=== PATIENT | female | born 1945 | race Caucasian/White ===

== ENCOUNTER 2023-06-06 10:43 | Day surgery (SDC) | payer MEDICARE ==
[2023-06-04 13:15] VITALS: BMI 32.5
[2023-06-06] MEDS: LACTATED RINGERS 1,000 ML IV SCH (11:07)
[2023-06-06] MEDS: LIDOCAINE 1% (10MG/ML) FOR IV START INTRADERMA PRN (11:20)
[2023-06-06 11:36] VITALS: TEMP 97.2
[2023-06-06] MEDS ORDERED: PROPOFOL 10 MG/ML 20 ML VIAL IV ONE (11:56)
--- NOTE | 2023-06-06 12:10 | P.PCN ---
Date of Procedure: 06/06/23 Procedure(s) Performed: BRIEF HISTORY: Patient is a 78-year-old pleasant [place] female scheduled for an elective colonoscopy as a part of screening for colon cancer/positive cologurd PROCEDURE PERFORMED: Colonoscopy with snare polypectomy. PREOPERATIVE DIAGNOSIS: Screening for colon cancer/positive cologuard. IV sedation per Anesthesia. PROCEDURE: After informed consent was obtained, the patient, was brought into the endoscopy unit. IV sedation was administered by Anesthesia under continuous monitoring. Digital rectal examination was normal. Initially the Olympus CF-160 flexible video colonoscope was then inserted in the rectum, gradually advanced into the cecum without any difficulty. Careful examination was performed as the scope was gradually being withdrawn. Ileocecal valve and the appendiceal orifice were visualized and appeared normal. Prep was excellent. Mucosa of the cecum, ascending colon, appeared normal. In the transverse colon there was a 1 cm broad-based polyp removed by snare polypectomy. Rest of the transverse colon, descending colon, sigmoid colon, and rectum appeared normal. Retroflexion was performed in the rectum and no lesions were seen. Scattered sigmoid diverticulosis seen. The patient tolerated the procedure well. IMPRESSION: 1 cm broad-based transverse colon polyp status post snare polypectomy Scattered sigmoid diverticulosis RECOMMENDATIONS: Findings of this examination were discussed with the patient as well as her family. She was advised to follow with the biopsy result and the biopsy results adenoma, recommend repeat colonoscopy in 3 years.
[2023-06-06 12:37] VITALS: BP 133/70; PULSE 74; RESP 20
== END 2023-06-06 12:56 | disposition home or self-care (01) ==
LOC: ORWHC2ENDO 10:43
PROVIDERS: ATTEND Internal Medicine Gastroenterology
DX: D12.3 Benign neoplasm of transverse colon (principal); K57.30 Diverticulosis of large intestine without perforation or abscess without bleeding; I10 Essential (primary) hypertension; J45.909 Unspecified asthma, uncomplicated; F17.200 Nicotine dependence, unspecified, uncomplicated; E03.9 Hypothyroidism, unspecified; Z79.890 Hormone replacement therapy; Z79.51 Long term (current) use of inhaled steroids; Z79.899 Other long term (current) drug therapy
CPT/HCPCS: 88305; 45385; J2704

== ENCOUNTER → 2024-03-27 | Outpatient (CLI) | payer MEDICARE ==
--- NOTE | 2024-03-27 10:34 | MM ---
Reason for Exam: Clinical finding. Last mammogram was performed 16 year(s) and 3 month(s) ago. Indicated Problems: Lump or thickening of the right side for 2 Month(s). Patient History: Menarche at age 12. Patient has no children. Hysterectomy at age 52. Postmenopausal. 02/19/2008, Cancelled Left Mammotome on the left side. Maternal cousin had breast cancer. Risk Values: Elyse 5 year model risk: 1.7%. NCI Lifetime model risk: 3.5%. Prior Study Comparison: 05/02/2002 Bilateral Diagnostic Mammogram, [facility]. 01/09/2008 Bilateral Screening Mammogram, [facility]. 01/23/2008 Left Diagnostic Mammogram, [facility]. Tissue Density: There are scattered areas of fibroglandular density. Findings: Analyzed By CAD. The pattern is symmetrical. The large spiculated density within the upper outer right breast highly suggestive for malignancy. Left breast:No suspicious groups of microcalcifications, spiculated or lobular masses, architectural distortion or other secondary signs of malignancy are mammographically apparent. There are some scattered benign-appearing calcifications left breast. Overall Assessment: Incomplete: need additional imaging evaluation, BI-RAD 0 Management: Diagnostic Breast Ultrasound of the right breast. A negative mammogram report should not preclude additional follow up of suspicious palpable abnormalities. Patient should continue monthly self breast exam. A clinical breast exam by your physician is recommended on an annual basis and results should be correlated with mammographic findings. Note on Elyse scores and lifetime risk: 1. A Elyse score greater than 3% is considered moderate risk. If this is the case, consider specialist referral to assess eligibility for a risk reducing agent. 2. If overall lifetime risk for the development of breast cancer is 20% or higher, the patient may qualify for future screening with alternating mammogram and breast MRI. [facility], , 03/27/2024 10:27 AM. Electronically signed and approved by: Lucien Glaser D.O. Radiologis
--- NOTE | 2024-03-27 11:19 | USB ---
Patient History: Menarche at age 12. Patient has no children. Hysterectomy at age 52. Postmenopausal. 02/19/2008, Cancelled Left Mammotome on the left side. Maternal cousin had breast cancer. Risk Values: Elyse 5 year model risk: 1.7%. NCI Lifetime model risk: 3.5%. Technique: Method: Targeted. Prior Study Comparison: 05/02/2002 Bilateral Diagnostic Mammogram, [facility]. 01/09/2008 Bilateral Screening Mammogram, [facility]. 01/23/2008 Left Diagnostic Mammogram, [facility]. Findings: The area of palpable concern of the right breast, the axilla of the right breast and the retroareolar of the right breast were scanned. There is an irregular hypoechoic lesion at the palpable level with posterior shadowing. This measures approximately 3.0 x 2.4 x 3.0 cm 10:00 position 15 cm nipple.. Several small lymph nodes in the right axillary region. Overall Assessment: Highly suggestive of malignancy, BI-RAD 5 Management: Ultrasound Core Biopsy of the right breast. A clinical breast exam by your physician is recommended on an annual basis and results should be correlated with mammographic findings. This exam should not preclude additional follow-up of suspicious palpable abnormalities. Results were given to the patient verbally at the time of exam. [facility], , 03/27/2024 11:04 AM. Electronically signed and approved by: Lucien Glaser D.O. Radiologis
== END | disposition home or self-care (01) ==
LOC: RADMAMWWP 09:15
PROVIDERS: ATTEND Family Medicine
DX: E03.9 Hypothyroidism, unspecified (principal); Z78.0 Asymptomatic menopausal state; Z80.3 Family history of malignant neoplasm of breast
CPT/HCPCS: 77066; 76642; G0279; 77062

== ENCOUNTER → 2024-04-10 | Day surgery (SDC) | payer MEDICARE ==
--- NOTE | 2024-04-17 10:06 | MM ---
Reason for Exam: Post Procedure Mammogram. Last screening mammogram was performed less than 1 month ago. Patient History: Menarche at age 12. Patient has no children. Hysterectomy at age 52. Postmenopausal. 02/19/2008, Cancelled Left Mammotome on the left side. Maternal cousin had breast cancer. Risk Values: Elyse 5 year model risk: 1.7%. NCI Lifetime model risk: 3.5%. Prior Study Comparison: 01/09/2008 Bilateral Screening Mammogram, [facility]. 01/23/2008 Left Diagnostic Mammogram, [facility]. 03/27/2024 Right US breast limited RT, [facility]. 03/27/2024 Bilateral MG 3D diag mammo w/cad [facility]MER, [facility]. Tissue Density: Right: There are scattered areas of fibroglandular density. Pathology Description: Location: 10 o'clock. Marker Left Behind. Needle Type: Celero Cores: 2 Gauge: 12 The procedure of ultrasound guided core biopsy was explained to the patient. Benefits, alternatives, and risks were discussed. An informed consent was then obtained. The patient was placed in supine positioning for imaging and for the procedure. The overlying skin was prepped and draped in usual sterile fashion. Lidocaine buffered with bicarbonate was used as anesthetic into the skin followed by lidocaine/epinephrine into the subcutaneous tissue up to area of concern in the 10:00 right breast. The BI-RADS 5 mass was targeted. Under ultrasound guidance, a 12-gauge vacuum assisted Celero biopsy device was used to obtain 2 core samples. Following this, a HydroMark butterfly clip was left in lesion. The patient tolerated the procedure well without any immediate complication. The patient was kept in the radiology department for short stay after the procedure and then discharged home in stable condition. Postprocedure mammogram: The patient was transferred to mammography for physician ordered post procedure mammogram for clip placement verification. Post procedure mammogram demonstrates appropriate placement of clip within the suspicious mass. IMPRESSION: Successful, uncomplicated ultrasound guided core biopsy of BI-RADS 5 mass right breast 10:00 position. Full pathology results to follow. [facility], , 04/10/2024 12:20 PMThe procedure of ultrasound guided core biopsy was explained to the patient. Benefits, alternatives, and risks were discussed. An informed consent was then obtained. The patient was placed in supine positioning for imaging and for the procedure. The overlying skin was prepped and draped in usual sterile fashion. Lidocaine buffered with bicarbonate was used as anesthetic into the skin followed by lidocaine/epinephrine into the subcutaneous tissue up to area of concern in the 10:00 right breast. The BI-RADS 5 mass was targeted. Under ultrasound guidance, a 12-gauge vacuum assisted Celero biopsy device was used to obtain 2 core samples. Following this, a HydroMark butterfly clip was left in lesion. The patient tolerated the procedure well without any immediate complication. The patient was kept in the radiology department for short stay after the procedure and then discharged home in stable condition. Postprocedure mammogram: The patient was transferred to mammography for physician ordered post procedure mammogram for clip placement verification. Post procedure mammogram demonstrates appropriate placement of clip within the suspicious mass. IMPRESSION: Successful, uncomplicated ultrasound guided core biopsy of BI-RADS 5 mass right breast 10:00 position. Full pathology results to follow. [facility], , 04/10/2024 12:21 PM. Pathology Results: Result: Malignant, Invasive ductal carcinoma. Pathology and radiology were reviewed. Findings are concordant. RIGHT BREAST, 10:00, NEEDLE CORE BIOPSY: Invasive moderately differentiated ductal carcinoma (Grade 2). See Surgical Pathology Cancer Case Summary and Comment. Overall Assessment: Malignant Assessment: MG diagnostic mammo RT wo CAD - Right: Known biopsy proven malignancy, BI-RAD 6. Management: Surgical Consultation of the right breast. Electronically signed and approved by: Nina Katz M.D. Radiologist
== END ==
LOC: RADUSWWP 10:31
PROVIDERS: ATTEND Family Medicine
DX: C50.411 Malignant neoplasm of upper-outer quadrant of right female breast (principal); Z78.0 Asymptomatic menopausal state; Z80.3 Family history of malignant neoplasm of breast
CPT/HCPCS: 88305; 88342; 88341; 77065; 19083; A4648

== ENCOUNTER → 2024-05-01 | Outpatient (CLI) | payer MEDICARE ==
[2024-05-01 08:49] VITALS: BP 177/97; PULSE 79; RESP 16; TEMP 97.2
--- NOTE | 2024-05-01 09:22 | P.GSCN ---
History of Present Illness Consult date: 05/01/24 Reason for Consult: Right breast invasive ductal carcinoma Requesting physician: Arnav Lewis History of present illness: Jackie is a 79-year-old female seen in consultation for Dr. Lewis regarding a biopsy-proven right breast invasive ductal carcinoma. She underwent a bilateral diagnostic mammogram for a palpable abnormality in the right breast on . This revealed a lesion in the upper outer quadrant region of the right breast. She subsequently underwent a diagnostic ultrasound of the right breast 1224. This revealed a 3 x 2.4 x 3 cm lesion at the 10 o'clock position of the right breast. Had a core biopsy of the right breast was performed on 04-10-2024. This revealed an invasive ductal carcinoma G2 ER positive ND positive HER2 equivocal. Radiographs were personally reviewed and discussed with Dr. Reece. She had not had a ammogram for approximately 16 years. She noted a mass in her right breast several months ago. It is not painful. It has not changed in size. She is not complaining of any nipple discharge or skin changes. She has never had any surgery on her breast. Caffiene: occasional nicotine: none chocolate: occasional BCP: none hormones: none Family history: paternal cousin: breast cancer neice: colon cancer sister: esophageal cancer Hormonal History: menarche: 12 G0 menoapuse: hysterectomy in her 40's no cancer, did not take ovaries Surgical History: Hysterectomy Cataracts cyst left hand Medical History: diabetes HTN hypothyroid asthma Social History: nicotine: none alcohol: occasional drugs: none Review of Systems - Constitutional Denies fever, Denies weight loss - EENT Eyes: bilateral as per HPI, denies blurred vision Ears: bilateral: decreased hearing (hearing aids), deny: tinnitus Ears, nose, mouth and throat: Denies dysphagia - Breasts bilateral: as per HPI - Cardiovascular Denies chest pain, Denies shortness of breath - Respiratory Denies cough, Denies 7 - Gastrointestinal Reports as per HPI - Genitourinary Genitourinary: Denies dysuria, Denies hematuria Menstruation: Reports post hysterectomy - Musculoskeletal Musculoskeleta Comment(s): sciatica - Integumentary Denies rash, Denies unusual bruising - Neurological Denies headaches, Denies syncope - Psychiatric Reports as per HPI - Endocrine Reports as per HPI - Hematologic/Lymphatic Denies easy bleeding, Denies easy bruising Hematologic/Lymphatic Comment(s): aspirin daily - Allergic/Immunologic Reports seasonal allergies Past Medical History Past Medical History: Asthma, Hypertension, Thyroid Disorder History of Any Multi-Drug Resistant Organisms: None Reported Past Surgical History: Hysterectomy Additional Past Surgical History / Comment(s): colonoscopy, Past Anesthesia/Blood Transfusion Reactions: No Reported Reaction Additional Past Anesthesia/Blood Transfusion Reaction / Comm: no blood transfusion Past Psychological History: No Psychological Hx Reported Smoking Status: Never smoker Past Alcohol Use History: Rare Past Drug Use History: None Reported Medications and Allergies Home Medications Medication Instructions Recorded Confirmed Type Acetaminophen-Codeine 300-30mg 1 tab PO BID 06/04/23 05/01/24 History [Tylenol w/codeine #3] Ascorbic Acid [Vitamin C] 500 mg PO DAILY 06/04/23 05/01/24 History Aspirin [[place] Aspirin EC] 81 mg PO DAILY 06/04/23 05/01/24 History Cinnamon Bark [Cinnamon] 500 mg PO BID 06/04/23 05/01/24 History Magnesium Carb,Citrate,Oxide 300 mg PO DAILY 06/04/23 05/01/24 History [Magnesium Complex] Mometasone/Formoterol [Dulera 100 2 puff INHALATION BID 06/04/23 05/01/24 History Mcg-5 Mcg Inhaler] Potassium Gluconate [Potassium 99 mg PO DAILY 06/04/23 05/01/24 History (2.5 MEQ = 600 MG)] Thyroid,Pork [[place] Thyroid] 30 mg PO DAILY 06/04/23 05/01/24 History Triamterene/Hydrochlorothiazid 1 each PO DAILY 06/04/23 05/01/24 History [Triamterene-Hctz 37.5-25 mg Cp] Vitamin B Complex 1 each PO DAILY 06/04/23 05/01/24 History busPIRone HCL [Buspirone HCl] 10 mg PO DAILY 06/04/23 05/01/24 History cod liver oiL [Cod Liver Oil] 1 tab PO DAILY 06/04/23 05/01/24 History ramipriL [Altace] 10 mg PO DAILY 06/04/23 05/01/24 History Allergies Allergy/AdvReac Type Severity Reaction Status Date / Time No Known Allergies Allergy Verified 05/01/24 08:44 Surgical - Exam Vital Signs Temp Pulse Resp BP Pulse Ox 98.2 F 64 17 173/78 100 05/01/24 08:44 05/01/24 08:44 05/01/24 08:44 05/01/24 08:44 05/01/24 08:44 - General no distress - Eyes normal ocular movement - ENT bilateral hearing aids - Respiratory normal respiratory effort, clear to auscultation - Cardiovascular Rhythm: regular Heart Sounds: normal: S1, S2 - Abdomen Abdomen: soft, non tender, no guarding, no rigid, no rebound - Integumentary no rash, no abnormal pigmentation - Neurologic no disoriented, no combative - Musculoskeletal normal gait - Psychiatric oriented to time, oriented to person, oriented to place, speech is normal, memory intact Breast Exam: 40DD Inspection: Bilateral grade 3 ptosis Palpation: Right breast: Multi positional exam mass upper outer quadrant approximately 3 x 3 cm in size freely mobile no other dominant masses or nodules of concern Right axilla: No adenopathy of concern Left breast: Multi positional exam no dominant masses or nodules of concern Left axilla: No adenopathy of concern Results Radiographs personally reviewed and discussed with Dr. Reece from radiology/lesion right breast 10 o'clock position biopsy-proven invasive ductal carcinoma Assessment and Plan Assessment: Impression: Right breast invasive ductal carcinoma HER2 status pending Decreased hearing bilateral ears Asthma Hypertension Hypothyroid Plan: Presentation of case at tumor board CC: Dr. Lewis/Mary Ellen Rebolledo
== END ==
LOC: WWCWWP 08:06
PROVIDERS: ATTEND Surgery
DX: C50.911 Malignant neoplasm of unspecified site of right female breast (principal); I10 Essential (primary) hypertension; J45.909 Unspecified asthma, uncomplicated; E03.9 Hypothyroidism, unspecified; H91.03 Ototoxic hearing loss, bilateral; Z80.3 Family history of malignant neoplasm of breast

== ENCOUNTER → 2024-06-12 | Outpatient (CLI) | payer MEDICARE ==
[2024-06-12 12:09] VITALS: BP 137/77; PULSE 87; RESP 17; TEMP 97.9
--- NOTE | 2024-06-12 13:04 | P.BCPN ---
Subjective Progress Note Date: 06/12/24 Principal diagnosis: right breast invasive ductal cancer History of Present Illness Consult date: 06-12-24 Reason for Consult: Right breast invasive ductal carcinoma Requesting physician: Arnav Lewis History of present illness: Jackie is a 79-year-old female seen in consultation for Dr. Lewis regarding a biopsy-proven right breast invasive ductal carcinoma. She underwent a bilateral diagnostic mammogram for a palpable abnormality in the right breast on 24. This revealed a lesion in the upper outer quadrant region of the right breast. She subsequently underwent a diagnostic ultrasound of the right breast 1224. This revealed a 3 x 2.4 x 3 cm at the 10 o'clock position of the right breast. Had a core biopsy of the right breast was performed on 04-10-2024. This revealed an invasive ductal carcinoma G2 ER positive MT positive HER2 (-). Radiographs were personally reviewed and discussed with Dr. Reece. She had not had a mammogram for approximately 16 years. She noted a mass in her right breast several months ago. It is not painful. It has not changed in size. She is not complaining of any nipple discharge or skin changes. She has never had any surgery on her breast. Ultrasound of the axilla revealed a lesion in the right axilla for which core biopsy was performed. This was done on. This was positive. oncotype 6 Patient will have genetic testing done which will not change her treatment decision. Her case was presented at tumor board on 05-13-2024 note medical oncology 05-13-24 Dr. Malik reviewed Caffiene: occasional nicotine: none chocolate: occasional BCP: none hormones: none Family history: paternal cousin: breast cancer neice: colon cancer sister: esophageal cancer Hormonal History: menarche: 12 G0 menoapuse: hysterectomy in her 40's no cancer, did not take ovaries Surgical History: Hysterectomy Cataracts cyst left hand Medical History: diabetes HTN hypothyroid asthma Social History: nicotine: none alcohol: occasional drugs: none Review of Systems - Constitutional Denies fever, Denies weight loss - EENT Eyes: bilateral as per HPI, denies blurred vision Ears: bilateral: decreased hearing (hearing aids), deny: tinnitus Ears, nose, mouth and throat: Denies dysphagia - Breasts bilateral: as per HPI - Cardiovascular Denies chest pain, Denies shortness of breath - Respiratory Denies cough - Gastrointestinal Reports as per HPI - Genitourinary Genitourinary: Denies dysuria, Denies hematuria Menstruation: Reports post hysterectomy - Musculoskeletal Musculoskeleta Comment(s): sciatica - Integumentary Denies rash, Denies unusual bruising - Neurological Denies headaches, Denies syncope - Psychiatric Reports as per HPI - Endocrine Reports as per HPI - Hematologic/Lymphatic Denies easy bleeding, Denies easy bruising Hematologic/Lymphatic Comment(s): aspirin daily - Allergic/Immunologic Reports seasonal allergies Past Medical History Past Medical History: Asthma, Hypertension, Thyroid Disorder History of Any Multi-Drug Resistant Organisms: None Reported Past Surgical History: Hysterectomy Additional Past Surgical History / Comment(s): colonoscopy, Past Anesthesia/Blood Transfusion Reactions: No Reported Reaction Additional Past Anesthesia/Blood Transfusion Reaction / Comm: no blood transfusion Past Psychological History: No Psychological Hx Reported Smoking Status: Never smoker Past Alcohol Use History: Rare Past Drug Use History: None Reported Medications and Allergies Home Medications Medication Instructions Recorded Confirmed Type Acetaminophen-Codeine 300-30mg 1 tab PO BID 06/04/23 05/01/24 History [Tylenol w/codeine #3] Ascorbic Acid [Vitamin C] 500 mg PO DAILY 06/04/23 05/01/24 History Aspirin [[place] Aspirin EC] 81 mg PO DAILY 06/04/23 05/01/24 History Cinnamon Bark [Cinnamon] 500 mg PO BID 06/04/23 05/01/24 History Magnesium Carb,Citrate,Oxide 300 mg PO DAILY 06/04/23 05/01/24 History [Magnesium Complex] Mometasone/Formoterol [Dulera 100 2 puff INHALATION BID 06/04/23 05/01/24 History Mcg-5 Mcg Inhaler] Potassium Gluconate [Potassium 99 mg PO DAILY 06/04/23 05/01/24 History (2.5 MEQ = 600 MG)] Thyroid,Pork [[place] Thyroid] 30 mg PO DAILY 06/04/23 05/01/24 History Triamterene/Hydrochlorothiazid 1 each PO DAILY 06/04/23 05/01/24 History [Triamterene-Hctz 37.5-25 mg Cp] Vitamin B Complex 1 each PO DAILY 06/04/23 05/01/24 History busPIRone HCL [Buspirone HCl] 10 mg PO DAILY 06/04/23 05/01/24 History cod liver oiL [Cod Liver Oil] 1 tab PO DAILY 06/04/23 05/01/24 History ramipriL [Altace] 10 mg PO DAILY 06/04/23 05/01/24 History Allergies Allergy/AdvReac Type Severity Reaction Status Date / Time No Known Allergies Allergy Verified 05/01/24 08:44 Objective - Vital Signs Vital Signs: Vital Signs Temp 97.9 F 06/12/24 12:07 Pulse 87 06/12/24 12:07 Resp 17 06/12/24 12:07 BP 137/77 06/12/24 12:07 Pulse Ox 94 L 06/12/24 12:07 FiO2 Intake & Output 06/11/24 06/12/24 06/12/24 18:59 06:59 18:59 Weight 73.936 kg - Constitutional General appearance: Present: cooperative - EENT Eyes: Present: EOMI ENT: Present: hearing grossly normal - Neck Neck: Present: normal ROM - Breast Breast-Narrative: Breast Exam: 40DD Inspection: Bilateral grade 3 ptosis Palpation: Right breast: Multi positional exam mass upper outer quadrant approximately 3 x 3 cm in size freely mobile no other dominant masses or nodules of concern Right axilla: No adenopathy of concern Left breast: Multi positional exam no dominant masses or nodules of concern Left axilla: No adenopathy of concern Ptosis: Grade 3: Right Breast Ptosis, Left Breast Ptosis Breast: right: mass (3 by 3 cm UOQ), left: normal Right Breast Palpation (Multi-positional): Other Left Breast Palpation (Multi-positional): No dominant masses, Fibrocystic Changes Right Axilla Palpation: No adenopathy of concern Left Axilla Palpation: No adenopathy of concern - Respiratory Respiratory: bilateral: CTA - Cardiovascular Heart sounds: normal: S1, S2 - Gastrointestinal General gastrointestinal: Present: soft - Integumentary Integumentary: Present: normal turgor - Musculoskeletal Musculoskeletal: Present: gait normal - Psychiatric Psychiatric: Present: A&O x's 3, appropriate affect, intact judgment & insight - Additional findings Additional findings: Breast Exam: 40DD Inspection: Bilateral grade 3 ptosis Palpation: Right breast: Multi positional exam mass upper outer quadrant approximately 3 x 3 cm in size freely mobile no other dominant masses or nodules of concern Right axilla: No adenopathy of concern Left breast: Multi positional exam no dominant masses or nodules of concern Left axilla: No adenopathy of concern Assessment and Plan Plan: Impression: Right breast invasive ductal carcinoma Core biopsy right axillary lymph node positive for invasive ductal carcinoma HER2 status (-) Decreased hearing bilateral ears Asthma Hypertension Hypothyroid Plan: Preoperative clearance from Dr. Lewis right breast needle localization lumpectomy, right sentinel node injection, right sentinel node biopsy possible right axillary node dissection, needle localization of right positive axillary lymph node with resection, possible oncoplastic tissue transfer, methylene blue injection of tumor preoperative CBC pre-op CC: Dr. Lewis/Mary Ellen Rebolledo Additional CC's: Arnav Rebolledo Prep Education Provided - Preoperative Education Given Pre-Op Kit Given Date: 06/12/24 - Functional Assessment Performed?: Yes (arm abduction passed)
[2024-06-12 21:02] LABS: Basophils # (A) 0.02 X 10*3/uL (0.00-0.10); Basophils % (A) 0.5 %; Eosinophils # (A) 0.07 X 10*3/uL (0.04-0.35); Eosinophils % (A) 1.6 %; HCT 39.5 % (37.2-46.3); HGB 12.4 g/dL (12.0-15.0); Lymphocytes # (A) 1.68 X 10*3/uL (0.90-5.00); Lymphocytes % (A) 38.3 %; MCH 29.5 pg (27.0-32.0); MCHC 31.4 g/dL (32.0-37.0); MCV 93.8 FL (80.0-97.0); Mean Platelet Volume 10.8 FL (9.5-12.2); Monocytes # (A) 0.52 X 10*3/uL (0.20-1.00); Monocytes % (A) 11.8 %; NRBC Per 100 WBC 0 X 10*3/uL (0.00-0.01); Neutrophils # (A) 2.09 X 10*3/uL (1.80-7.70); Neutrophils % (A) 47.6 %; Platelet Count 181 X 10*3/uL (140-440); RBC 4.21 X 10*6/uL (4.10-5.20); RDW 13.5 % (11.5-14.5); WBC 4.39 X 10*3/uL (4.50-10.00)
== END ==
LOC: WWCWWP 11:38
PROVIDERS: ATTEND Surgery
DX: C50.911 Malignant neoplasm of unspecified site of right female breast (principal); I10 Essential (primary) hypertension; E03.9 Hypothyroidism, unspecified; J45.909 Unspecified asthma, uncomplicated; Z17.411 Hormone receptor positive with human epidermal growth factor receptor 2 negative status; Z80.3 Family history of malignant neoplasm of breast
CPT/HCPCS: 85025

== ENCOUNTER 2024-06-24 07:17 | Day surgery (SDC) | payer MEDICARE ==
[~2024-06-24 07:17] MED LIST: HYDROmorphone 0.5 MG/0.5 ML SYRINGE IVP PRN; LIDOCAINE 1% (10MG/ML) FOR IV START INTRADERMA PRN; MIDAZOLAM 2 MG/2 ML VIAL IV PRN; fentaNYL (PF) 50 MCG/ML 2 ML AMP IVP PRN
[2024-06-24] MEDS ORDERED: METHYLENE BLUE 50 MG/10 ML AMPUL MISCELLANE ONE (07:30)
[2024-06-24 07:57] LABS: Glucose,Whole Blood 91 mg/dL (70-110)
[2024-06-24] MEDS: IV FLUID CONTINUATION 1,000 ML IV ONE (08:01)
[2024-06-24] MEDS: ONDANSETRON 4 MG/2 ML VIAL IVP ONE (08:02)
[2024-06-24] MEDS: ACETAMINOPHEN TAB 500 MG TAB PO PRN (08:02)
[2024-06-24] MEDS: LACTATED RINGERS 1,000 ML IV SCH (08:02)
[2024-06-24] MEDS: DEXAMETHASONE SOD PHOSPHATE 4 MG/ML 1 ML VIAL IV ONE (08:02)
[2024-06-24] MEDS: ALPRAZolam 0.25 MG TAB PO STA (08:29)
--- NOTE | 2024-06-24 08:49 | P.NAPBC ---
NAPBC Queries - NAPBC Queries Was patient's case review presented at [facility] tumor board? If no, comment.: Yes Was patient's pathology reviewed at [facility]? If no, comment.: Yes Was breast conservation surgery offered? If no, comment.: Yes Was sentinel node biopsy offered? If no, comment.: Yes Was diagnosis confirmed by percutaneous core biopsy? If no, comment.: Yes Is patient mastectomy patient?: No Was a preop referral to reconstructive surgeon offered?: No Clinical Stage: right breast [id number]+Her2-G2 invasive ductal cancer
[2024-06-24] MEDS: HEPARIN SODIUM,PORCINE 5,000 UNIT/ML 1 ML VIAL SQ PRN (09:49)
[2024-06-24] MEDS ORDERED: PROPOFOL 10 MG/ML 20 ML VIAL IV ONE (10:00)
[2024-06-24] MEDS ORDERED: fentaNYL (PF) 50 MCG/ML 2 ML AMP ONE (10:00)
[2024-06-24] MEDS ORDERED: LIDOCAINE 1% INJ 10MG/ML (20 ML MDV) ONE (10:00)
[2024-06-24] MEDS ORDERED: HYDROmorphone (PF) 1 MG/ML ONE (10:00)
[2024-06-24] MEDS ORDERED: ePHEDrine 50 MG/ML 1 ML VIAL ONE (10:00)
[2024-06-24] MEDS: LIDOCAINE 1% INJ 10MG/ML (20 ML MDV) SQ ONE (10:37)
--- NOTE | 2024-06-24 10:37 | NM ---
EXAMINATION TYPE: NM sentinel node injection DATE OF EXAM: 06/24/2024 COMPARISON: NONE CLINICAL INDICATION: Female, 79 years old with history of RIGHT BREAST CA; TECHNIQUE AND FINDINGS: The procedure of sentinel lymph node injection was explained to the patient. The benefits, alternatives, and risks were discussed. An informed consent was then obtained. Overlying skin is cleaned with sterile alcohol. Following this, 518 uCi Tc99m Tilmanocept was inject ed in the upper outer aspect of the right nipple intradermally. The patient tolerated the procedure well without any immediate complication. The patient was kept in the radiology department for short stay after the procedure and then taken to surgery for surgical p rocedure what is presumed intraoperative gamma probe will be used for sentinel lymph node detection. IMPRESSION: Right breast radiotracer injection for sentinel node localization as above. [facility], , 06/24/2024 10:34 AM
--- NOTE | 2024-06-24 12:20 | P.BCAON ---
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 Postoperative Diagnosis: Same Procedure(s) Performed: Breast needle localization lumpectomy, right sentinel node injection, right sentinel node biopsy Anesthesia: JULIANNAA Surgeon: Urszula Nelson Estimated Blood Loss (ml): 10 IV fluids (ml): 600 Pathology: other (Right axillary tissue, right breast lumpectomy) Condition: stable Disposition: same day Indications for Procedure: Biopsy-proven right breast invasive ductal carcinoma Operative Findings: Dense breast tissue Description of Procedure: Patient was first taken to the radiology department where needle localization of the lesion in the right breast was performed. Additionally a needle was put in proximity of the known positive lymph node in the axilla and 1 cc of methylene blue was injected into this site. Periareolar radiotracer was injected. The patient was brought to the operative suite and following induction of anesthesia the neoprobe was used to interrogate the axilla. Radiotracer was identified in the axilla. The right breast and axilla were then prepped and draped in a sterile fashion. An incision was made in the axillary skin hairline this was carried down to the radial active lymph node which was consistent with the blue lymph node as well. The 10-second count on this lymph node was 24,038. This was resected. Additional radioactivity was identified and 4 additional radioactive lymph nodes were resected. Following this the background count was minimal. No other palpable nodes of concern were identified. No other blue lymph nodes were identified. After reassured that hemostasis was attained the wound was well irrigated. The deep tissues were closed using 3-0 Vicryl suture. This was followed by closure of the skin using 4-0 Monocryl. Following this the area of the breast was approached. An incision was made and carried down to the shaft of the needle. Wide excision of the surrounding tissue was performed. The specimen was approximately 5 x 7 cm. Posteriorly dissection was onto the pectoralis muscle. Anteriorly dissection was directly into the subcutaneous tissue at the level of the skin. The specimen was painted for orientation. And sent to radiology. The medial margin was noted to be orange and the lateral margin was noted to be yellow. The superior margin was black inferior was green. Anterior blue and posterior purple. The radiograph of the specimen revealed that the lesion as well as the wire and clip were included in the specimen. After reassured that hemostasis was attained titanium clips were placed to mague the cavity. Surgicel in powder form was placed. A #10 MIGUEL drain was placed. The deeper tissues were closed using 3-0 Vicryl suture. This was followed by closure of the skin using 4-0 Monocryl. A nylon skin suture was placed. The drain was secured using a 3-0 nylon suture. All instrument and sponge counts were correct at the end of the case. The patient tolerated the procedure in stable condition. 20 cc of 1% lidocaine were injected into the incision at the end of the case. - Sentinal Node Biopsy Operation performed with curative intent: Yes Tracer(s) used in upfront surgery (non-neoadjuvant): dye, radioactive tracer Tracer(s) used in the neoadjuvant setting: N/A All nodes present at end of dye-filled channel removed: Yes All significantly radioactive nodes were removed: Yes All palpably suspicious nodes were removed: Yes Clipped positive nodes identified and removed: Yes
[2024-06-24 12:51] VITALS: TEMP 97.3
[2024-06-24 13:32] VITALS: PULSE 73
[2024-06-24 13:53] VITALS: BP 175/83; RESP 18
--- NOTE | 2024-07-03 11:07 | MM ---
Reason for Exam: Post Procedure Mammogram. Last screening mammogram was performed 3 month(s) ago. Patient History: Menarche at age 12. Patient has no children. Hysterectomy at age 52. Postmenopausal. Breast cancer, right, age 78. Breast cancer, right, age 79. 05/22/2024, Malignant US biopsy breast VAD RT on the right side. 04/10/2024, Malignant US biopsy breast VAD RT on the right side. 02/19/2008, Cancelled Left Mammotome on the left side. Maternal cousin had breast cancer. Prior Study Comparison: 03/27/2024 Bilateral MG 3D diag mammo w/cad [facility], [facility]. 04/10/2024 Right MG diagnostic mammo RT wo CAD, [facility]. 05/22/2024 Right MG diagnostic mammo RT wo CAD, [facility]. Tissue Density: Right: There are scattered areas of fibroglandular density. Pathology Description: Location: 10 o'clock, axilla. Needle Type: 5 cm [place] Informed consent was obtained and all the patient's questions were answered. The lesion in question was localized mammographically. The standard sterile technique was utilized, as well as appropriate local anesthesia with 1% Lidocaine and bicarbonate. Localization needle followed by placement of a guidewire was performed under ultrasound at the site of the patient's right breast mass at the 10:00 position. At the patient's site of enlarged lymph node localization needle was placed to the level of the lymph node and 1 cc of methylene blue injection was performed by the surgeon. Localization needle was not deployed per the request of the surgeon. Specimen radiograph demonstrates a lymph node with a clip at its center. Specimen radiograph #2 demonstrates a spiculated mass to reside within the specimen radiograph submitted as well as the clip and guidewire. Spiculations extend to the tumor margin. IMPRESSION: 1. Successful ultrasound-guided localization of spiculated mass at the right 10:00 position as well as methylene blue injection at the site of enlarged axillary lymph node. Pathology Results: Result: Malignant, Invasive ductal carcinoma. Pathology and radiology were reviewed. Findings are concordant. A. SENTINEL LYMPH NODES, DISSECTION: 1 of 4 sentinel lymph nodes positive for macrometastatic carcinoma with adjacent biopsy site change. Metastatic focus measures 5 mm in greatest microscopic dimension. See note for sentinel node confirmatory immunostain results. B. 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 See [facility] surgical pathology cancer case summary and comment. All margins negative for in situ or invasive carcinoma. C. AXILLARY TISSUE, DISSECTION: 1 axillary lymph node with micrometastatic carcinoma (approximately 1.5 mm in greatest dimension). 1 axillary lymph node with macrometastatic carcinoma (7 mm in greatest dimension). Extranodal extension present (6 mm in greatest dimension). 8 total axillary lymph nodes examined. Overall Assessment: Malignant Assessment: MG diagnostic mammo RT wo CAD - Right: Known biopsy proven malignancy, BI-RAD 6. Management: Oncologic Management of the right breast. Electronically signed and approved by: Karri Aguilera M.D. Radiologis
== END 2024-06-24 14:57 | disposition home or self-care (01) ==
LOC: OR 07:17
PROVIDERS: ATTEND Surgery
DX: C50.411 Malignant neoplasm of upper-outer quadrant of right female breast (principal); J45.909 Unspecified asthma, uncomplicated; E07.9 Disorder of thyroid, unspecified; I10 Essential (primary) hypertension; E11.9 Type 2 diabetes mellitus without complications; H90.3 Sensorineural hearing loss, bilateral; Z79.890 Hormone replacement therapy; Z79.82 Long term (current) use of aspirin; Z79.899 Other long term (current) drug therapy
CPT/HCPCS: 88342; 88307; 88341; 77065; 76098; 19301; 38525; 19285; 19286; 38792; C1819; A9520; J1644; J1100; J0690; J2405; J2003; J3010; J1171; J2704

== ENCOUNTER → 2024-06-27 | Outpatient (CLI) | payer MEDICARE ==
[2024-06-27 12:05] VITALS: BP 131/83; PULSE 64; RESP 17; TEMP 97.6
--- NOTE | 2024-06-27 12:26 | P.PN ---
Subjective Progress Note Date: 06/27/24 Principal diagnosis: right breast IDC Jackie on 06-25-24 underwent a right breast lumpectomy and SNB. Pathology is pending. Her drain stopped working. She is not complaining of any fever or chills. Her pain is under control. Examination: Incision breast and axilla clean and dry, there appears to be a small seroma at the breast site, mild erythema at the breast incision site the drain does not appear to be working. The drain was stripped and plugged and 80 cc of dark fluid was obtained. There was complete resolution of the seroma. Plan: Leave drain in at this time Antibiotics secondary to mild erythema at breast incision site Follow-up next week Objective - Vital Signs Vital signs: Vital Signs Temp 97.6 F 06/27/24 12:03 Pulse 64 06/27/24 12:03 Resp 17 06/27/24 12:03 BP 131/83 06/27/24 12:03 Pulse Ox 99 06/27/24 12:03 FiO2 Intake & Output 06/26/24 06/27/24 06/27/24 18:59 06:59 18:59 Weight 74.389 kg
== END ==
LOC: WWCWWP 11:17
PROVIDERS: ATTEND Surgery
DX: C50.911 Malignant neoplasm of unspecified site of right female breast (principal); Z90.11 Acquired absence of right breast and nipple

== ENCOUNTER → 2024-07-03 | Outpatient (CLI) | payer MEDICARE ==
[2024-07-03 12:05] VITALS: BP 147/79; PULSE 77; RESP 16; TEMP 97.9
--- NOTE | 2024-07-03 12:11 | P.BCPO ---
Progress Note - Text Progress Note Date: 07/03/24 Jackie is a 79-year-old female status post a right breast lumpectomy and sentinel node biopsy on 06-25-2024. Postprocedure her drain in the breast stopped working and she was seen on 06-27-2024 where this was unplugged. At that time 80 cc of dark fluid was obtained. Patient's pathology revealed a 4 cm invasive ductal carcinoma. All margins negative. DCIS was present negative for extensive component measures up to 8 mm in greatest dimension margins negative Total of 12 lymph nodes removed 1 with macro metastatic disease and 1 with micrometastatic disease Oncotype: 6 Lungs: Clear Incision: Clean and dry breast and axilla Heart: Regular rate and rhythm Impression: Patient doing well postoperative Patient will assessment arm abduction without difficulty Plan: Remove MIGUEL drain Remove sutures Follow-up medical oncology Follow-up radiation oncology Follow-up here in 4 months CC; Dr. Lewis Post Op Education - Post Op Education Post Op Education Provided Date: 07/03/24 - Functional Assessment Performed?: Yes (passes arm abduction)
== END ==
LOC: WWCWWP 11:52
PROVIDERS: ATTEND Surgery
DX: Z90.12 Acquired absence of left breast and nipple (principal)

== ENCOUNTER 2024-07-23 13:03 | Day surgery (SDC) | payer MEDICARE ==
[2024-07-23] MEDS: ALPRAZolam 0.25 MG TAB PO PRN (13:50)
[2024-07-23 13:58] VITALS: RESP 16; TEMP 97.7
[2024-07-23 15:42] VITALS: BP 133/81; PULSE 70
--- NOTE | 2024-08-05 13:43 | US ---
EXAMINATION TYPE: US visceral fluid drainage with catheter placement, US visceral fluid drainage with catheter placement DATE OF EXAM: 07/23/2024 3:53 PM COMPARISON: None. CLINICAL INDICATION: Female, 79 years old with history of Breast and axilla fluid collections, status post lumpectomy and axillary node dissection, fullness and pain RADIOLOGIST: Dr. Adriel Katz PROCEDURE: Ultrasound along the lateral right breast 9:00 position shows large 10 cm mildly complex fluid collec tion, suspected seroma. Ultrasound of the axilla overlying the area of swelling and redness shows a smaller complex collectio n measuring nearly 7 cm. Both are targeted for drainage catheter placement. The patient was brought into the ultrasound suite. The procedure, along with risks and complications were discussed with the patient. Patient agreed to proceed with the procedure. A consent was signed and placed in patient 's chart. Maximum sterile technique was utilized. The 2 sites were marked. Timeout was performed by radiology nursing. The lateral right breast and axilla were sterilely prepped and draped in the usual fashion. 10 mL of 1% Lidocaine was utilized to anesthetize the superficial and deep soft tissues under direct ultrasound guidance. Following that, a skin waqar was made at each site in turn and through that skin waqar, an 8.5 [place] c atheter system was advanced into the fluid collection under direct ultrasound guidance. The pigtail l oop was formed and secured as the stylette/introducer was removed from both catheters. Drainage bags were connected to both catheters. We note purulent return from the axillary catheter. Fluid was previously sent after aspiration in the office. There is clear yellow fluid, likely seroma fluid, from the lateral breast catheter. 50 mL sample of t his fluid was collected in a separate syringe, labeled, and sent for laboratory analysis. Both catheters were secured with a StayFix device. Patient tolerated the procedure well and discharged home in satisfactory condition. IMPRESSION: Satisfactory placement of TWO 8.5 Luxembourger pigtail drainage catheters into separate fluid collections, one abscess within the right axilla, and a second fluid collection likely large lateral right breast seroma at the lumpectomy site. Fluid analysis pending. [facility], , 07/23/2024 5:00 PM
== END 2024-07-23 15:40 | disposition home or self-care (01) ==
LOC: RADPROMAIN 13:03
PROVIDERS: ATTEND Surgery
DX: N61.0 Mastitis without abscess (principal)
CPT/HCPCS: 49405; 76942; 87070; 87075; 87205

== ENCOUNTER → 2024-07-23 | Outpatient (CLI) | payer MEDICARE ==
--- NOTE | 2024-07-23 12:46 | USB ---
Reason for Exam: Clinical finding. Patient History: Menarche at age 12. Patient has no children. Hysterectomy at age 52. Postmenopausal. Breast cancer, right, age 78. Breast cancer, right, age 79. Breast cancer, right, age 79. 06/24/2024, Lumpectomy on the Right side. 06/24/2024, Malignant US breast localization RT on the right side. 05/22/2024, Malignant US biopsy breast VAD RT on the right side. 04/10/2024, Malignant US biopsy breast VAD RT on the right side. 02/19/2008, Cancelled Left Mammotome on the left side. Maternal cousin had breast cancer. Prior Study Comparison: 03/27/2024 Right US breast limited RT, [facility]. 04/10/2024 Right MG diagnostic mammo RT wo CAD, [facility]. 05/22/2024 Right MG diagnostic mammo RT wo CAD, [facility]. 06/24/2024 Right MG diagnostic mammo RT wo CAD, [facility]. Findings: The lateral section of the breast of the right breast, the axilla of the right breast and the retroareolar of the right breast were scanned. Collection of fluid within the 9:00 position, 13 cm from the nipple at the site of patient's lumpectomy. This measures approximately 10.8 x 5.3 cm. Mild complexity with some internal septations. Suspected seroma. A second, more complex collection located at the axilla with some mobile internal material measuring 6.3 x 4 cm within the axilla. This corresponds to the area that was aspirated in the office with purulent return. Suggestive of abscess. No other solid or cystic lesion or axillary adenopathy. Overall Assessment: Probably benign, BI-RAD 3 Management: Aspiration of the right breast. Diagnostic Breast Ultrasound of the right breast in 1 month. We will attempt percutaneous drain placement at both sites and plan for follow-up with surgery. [facility], , 07/23/2024 12:43 PM. Electronically signed and approved by: Nina Katz M.D. Radiologist
== END | disposition home or self-care (01) ==
LOC: RADUSWWP 11:23
PROVIDERS: ATTEND Surgery
DX: Z85.3 Personal history of malignant neoplasm of breast (principal); Z80.3 Family history of malignant neoplasm of breast

== ENCOUNTER → 2024-07-23 | Outpatient (CLI) | payer MEDICARE ==
[2024-07-23 10:31] VITALS: BP 102/51; PULSE 73; RESP 16; TEMP 97.9
--- NOTE | 2024-07-23 11:17 | P.PN ---
Subjective Progress Note Date: 07/23/24 07/03/24 Jackie is a 79-year-old female status post a right breast lumpectomy and sentinel node biopsy on 06-25-2024. Postprocedure her drain in the breast stopped working and she was seen on 06-27-2024 where this was unplugged. At that time 80 cc of dark fluid was obtained. Patient's pathology revealed a 4 cm invasive ductal carcinoma. All margins negative. DCIS was present negative for extensive component measures up to 8 mm in greatest dimension margins negative Total of 12 lymph nodes removed 1 with macro metastatic disease and 1 with micrometastatic disease Oncotype: [address] Malik 07-08-24 reviewed no chemotherapy radiation and then endocrine therapy possible [place] Lungs: Clear Incision: Clean and dry with swelling at the axillary incision and some mild erythema, the breast appears to be swollen at the area of the lumpectomy site as well with possible seroma Heart: Regular rate and rhythm Impression/ Plan: Seroma at axillary incision and at breast incision Aspiration seroma right axillary incision Ultrasound breast to determine if there is a seroma at the breast incision as well Follow up one Week Following informed consent the area of concern at the axillary incision was prepped using alcohol. An 18-gauge needle and a 20 cc syringe was inserted into the area of fluctuance. 140 is of turbid fluid was obtained. Cultures were obtained on this. The patient will be started on an antibiotic. An ultrasound of the breast to determine if there is a seroma at the breast lumpectomy site will also be performed. CC; Dr. Lewis Objective - Vital Signs Vital signs: Vital Signs Temp 97.9 F 07/23/24 10:28 Pulse 73 07/23/24 10:28 Resp 16 07/23/24 10:28 BP 102/51 07/23/24 10:28 Pulse Ox 95 07/23/24 10:28 FiO2 Intake & Output 07/22/24 07/23/24 07/23/24 18:59 06:59 18:59 Weight 75.75 kg
== END ==
LOC: WWCWWP 09:52
PROVIDERS: ATTEND Surgery
DX: N64.89 Other specified disorders of breast (principal)
CPT/HCPCS: 49405; 76942; 87070; 87075; 87205

== ENCOUNTER 2024-07-30 09:00 | Day surgery (SDC) | payer MEDICARE ==
[2024-07-30 09:44] VITALS: BP 122/72; PULSE 70; RESP 16; TEMP 98
== END 2024-07-30 10:06 | disposition home or self-care (01) ==
LOC: RADPROMAIN 09:00
PROVIDERS: ATTEND Surgery
DX: Z48.03 Encounter for change or removal of drains (principal)
CPT/HCPCS: 99213

== ENCOUNTER → 2024-07-31 | Outpatient (CLI) | payer MEDICARE ==
[2024-07-31 09:07] VITALS: BP 129/79; PULSE 56; RESP 18; TEMP 98
--- NOTE | 2024-07-31 09:40 | P.BCPO ---
Progress Note - Text Subjective Progress Note Date: 07-31-24 seen on 07-23-24 and turbid fluid drained from axilla incision cultures citrobacter karlgus Jackie is a 79-year-old female status post a right breast lumpectomy and sentinel node biopsy on 06-25-2024. Post Procedure her drain in the breast stopped working and she was seen on 06-27-2024 where this was unplugged. At that time 80 cc of dark fluid was obtained. Patient's pathology revealed a 4 cm invasive ductal carcinoma. All margins negative. DCIS was present negative for extensive component measures up to 8 mm in greatest dimension margins negative Total of 12 lymph nodes removed 1 with macro metastatic disease and 1 with micrometastatic disease She was seen on 07 23 24 and noted to have some seroma of both the axillary and the breast site. At that time 140 cc were drained from the axillary site and cultures revealed citrobacter koseri She had radiographic drains placed at both the breast and the axilla, the drainage from the breast site has been negative since 1324, the drainage from the axillary site is likewise negative for the past several days. Oncotype: [address] Malik 07-08-24 reviewed no chemotherapy/radiation and then endocrine therapy possible Kisquali Lungs: Clear Incision: Clean and dry with swelling at the axillary incision and some mild erythema, the breast appears to be swollen at the area of the lumpectomy site as well with possible seroma Heart: Regular rate and rhythm aspiration of seroma axilla on 07-23-24 140 cc turbid fluid Impression/ Plan: Seroma both breast and axillary site with drainage which has stopped Erythema of the breast improved Remove drain from the breast Continue antibiotics for 1 week Follow-up next week Patient had an ultrasound done on 07-23-24 which showed fluid at both the axillary and breast sites. She is going to have interventional radiology attempt to drain and place drains at both sites. I have discussed this with the patient and her ; original drains placed on 07-23-24; Patient seen by radiation oncology on 07-30-24 and will see her again in one we ek. At this time there is no drainage from the drains. The amount from the axillary drain is less than 20 cc/day and has been negative for the past 24 hours. The amount from the breast has likewise been negative since 07-27-2024. She has had no fever or chills She is completing a course of antibiotics and will be given 1 more weeks worth CC; Dr. Lewis
== END ==
LOC: WWCWWP 08:53
PROVIDERS: ATTEND Surgery
DX: N64.89 Other specified disorders of breast (principal)

== ENCOUNTER → 2024-08-05 | Outpatient (CLI) | payer MEDICARE ==
[2024-08-05 08:11] VITALS: BP 120/73; PULSE 80; RESP 18; TEMP 97.8
--- NOTE | 2024-08-05 08:29 | P.BCPO ---
Progress Note - Text Progress Note Date: 08/05/24 07-31-24 seen on 07-23-24 and turbid fluid drained from axilla incision cultures citrobacter koseri Jackie is a 79-year-old female status post a right breast lumpectomy and sentinel node biopsy on 06-25-2024. Post Procedure her drain in the breast stopped working and she was seen on 06-27-2024 where this was unplugged. At that time 80 cc of dark fluid was obtained. Patient's pathology revealed a 4 cm invasive ductal carcinoma. All margins negative. DCIS was present negative for extensive component measures up to 8 mm in greatest dimension margins negative Total of 12 lymph nodes removed 1 with macro metastatic disease and 1 with micrometastatic disease She was seen on 07 23 24 and noted to have some seroma of both the axillary and the breast site. At that time 140 cc were drained from the axillary site and cultures revealed citrobacter koseri She had radiographic drains placed at both the breast and the axilla, the drainage from the breast site has been negative since 1324, the drainage from the axillary site is likewise negative for the past several days. Oncotype: [address] Malik 07-08-24 reviewed no chemotherapy/radiation and then endocrine therapy possible Kisquali Lungs: Clear Incision: clean and dry, no seroma; drain axilla no output Heart: Regular rate and rhythm Impression/ Plan: Seroma both breast and axillary site with drainage which has stopped Erythema of the breast improved Remove drain from the axilla follow up radiation oncology Follow-up 4 months CC: Dr. Lewis
== END ==
LOC: WWCWWP 07:49
PROVIDERS: ATTEND Surgery
DX: N64.89 Other specified disorders of breast (principal); E03.9 Hypothyroidism, unspecified; C50.911 Malignant neoplasm of unspecified site of right female breast; Z98.890 Other specified postprocedural states
CPT/HCPCS: 84443

== ENCOUNTER → 2024-11-13 | Outpatient (CLI) | payer MEDICARE ==
[2024-11-13 14:41] VITALS: BP 102/68; PULSE 85; RESP 17; TEMP 97.6
--- NOTE | 2024-11-13 15:20 | P.PN ---
Subjective Progress Note Date: 11/13/24 Jackie is a 79-year-old female seen in consultation for Dr. Lewis regarding a biopsy-proven right breast invasive ductal carcinoma. She underwent a bilateral diagnostic mammogram for a palpable abnormality in the right breast on . This revealed a lesion in the upper outer quadrant region of the right breast. She subsequently underwent a diagnostic ultrasound of the right breast 1224. This revealed a 3 x 2.4 x 3 cm at the 10 o'clock position of the right breast. Had a core biopsy of the right breast was performed on 04-10-2024. This revealed an invasive ductal carcinoma G2 ER positive NH positive HER2 (-). Radiographs were personally reviewed and discussed with Dr. Reece. She had not had a mammogram for approximately 16 years. She noted a mass in her right breast several months ago. It is not painful. It has not changed in size. She is not complaining of any nipple discharge or skin changes. She has never had any surgery on her breast. Ultrasound of the axilla revealed a lesion in the right axilla for which core biopsy was performed. This was done on. This was positive. oncotype 6 Patient will have genetic testing done which will not change her treatment decision. Her case was presented at tumor board on 05-13-2024 note medical oncology 05-13-24 Dr. Malik reviewed The patient on 06-25-24 underwent a right breast lumpectomy and SNB. Postprocedure her drain in the breast stopped working and she was seen in 06-27-2024 where this was unplugged. At that time 80 cc of dark fluid was obtained. Her pathology revealed a 4 cm invasive ductal carcinoma. All margins were negative. DCIS was present but negative for extensive component measuring up to 8 mm margins were negative. A total of 12 lymph nodes were removed, 1 with macro metastatic disease and 1 with micrometastatic disease. She was seen on 07 23 24 and noted to have a seroma of both the axilla and the breast site. At that time 140 cc were drained from the axillary site and cultures revealed Citrobacter koseri. She had radiographic drains placed at both the breast and the axilla on 07-23-24. The drains were subsequently removed. note radiation oncology 10-28-24 completed radiation 10-06-2024; plan on hormonal therapy and follow-up mammogram 6 months from radiation She is not complaining of any lumps masses or nodules in either breast, she does complain of swelling in the right axilla which started with her radiation therapy. She is not complaining of any fever or chills. She is presently taking letrozole. Caffiene: occasional nicotine: none chocolate: occasional BCP: none hormones: none Family history: paternal cousin: breast cancer neice: colon cancer sister: esophageal cancer Hormonal History: menarche: 12 G0 menoapuse: hysterectomy in her 40's no cancer, did not take ovaries Surgical History: Hysterectomy Cataracts cyst left hand Medical History: diabetes HTN hypothyroid asthma Social History: nicotine: none alcohol: occasional drugs: none Review of Systems - Constitutional Denies fever, Denies weight loss - EENT Eyes: bilateral as per HPI, denies blurred vision Ears: bilateral: decreased hearing (hearing aids), deny: tinnitus Ears, nose, mouth and throat: Denies dysphagia - Breasts bilateral: as per HPI - Cardiovascular Denies chest pain, Denies shortness of breath - Respiratory Denies cough - Gastrointestinal Reports as per HPI - Genitourinary Genitourinary: Denies dysuria, Denies hematuria Menstruation: Reports post hysterectomy - Musculoskeletal Musculoskeleta Comment(s): sciatica - Integumentary Denies rash, Denies unusual bruising - Neurological Denies headaches, Denies syncope - Psychiatric Reports as per HPI - Endocrine Reports as per HPI - Hematologic/Lymphatic Denies easy bleeding, Denies easy bruising Hematologic/Lymphatic Comment(s): aspirin daily - Allergic/Immunologic Reports seasonal allergies Past Medical History Past Medical History: Asthma, Hypertension, Thyroid Disorder History of Any Multi-Drug Resistant Organisms: None Reported Past Surgical History: Hysterectomy Additional Past Surgical History / Comment(s): colonoscopy, Past Anesthesia/Blood Transfusion Reactions: No Reported Reaction Additional Past Anesthesia/Blood Transfusion Reaction / Comm: no blood transfusion Past Psychological History: No Psychological Hx Reported Smoking Status: Never smoker Past Alcohol Use History: Rare Past Drug Use History: None Reported Medications and Allergies Home Medications Medication Instructions Recorded Confirmed Type Acetaminophen-Codeine 300-30mg 1 tab PO BID 06/04/23 05/01/24 History [Tylenol w/codeine #3] Ascorbic Acid [Vitamin C] 500 mg PO DAILY 06/04/23 05/01/24 History Aspirin [[place] Aspirin EC] 81 mg PO DAILY 06/04/23 05/01/24 History Cinnamon Bark [Cinnamon] 500 mg PO BID 06/04/23 05/01/24 History Magnesium Carb,Citrate,Oxide 300 mg PO DAILY 06/04/23 05/01/24 History [Magnesium Complex] Mometasone/Formoterol [Dulera 100 2 puff INHALATION BID 06/04/23 05/01/24 History Mcg-5 Mcg Inhaler] Potassium Gluconate [Potassium 99 mg PO DAILY 06/04/23 05/01/24 History (2.5 MEQ = 600 MG)] Thyroid,Pork [[place] Thyroid] 30 mg PO DAILY 06/04/23 05/01/24 History Triamterene/Hydrochlorothiazid 1 each PO DAILY 06/04/23 05/01/24 History [Triamterene-Hctz 37.5-25 mg Cp] Vitamin B Complex 1 each PO DAILY 06/04/23 05/01/24 History busPIRone HCL [Buspirone HCl] 10 mg PO DAILY 06/04/23 05/01/24 History cod liver oiL [Cod Liver Oil] 1 tab PO DAILY 06/04/23 05/01/24 History ramipriL [Altace] 10 mg PO DAILY 06/04/23 05/01/24 History Allergies Allergy/AdvReac Type Severity Reaction Status Date / Time No Known Allergies Allergy Verified 05/01/24 08:44 Objective - Vital Signs Vital signs: Vital Signs Temp 97.6 F 11/13/24 14:38 Pulse 85 11/13/24 14:38 Resp 17 11/13/24 14:38 BP 102/68 11/13/24 14:38 Pulse Ox 100 11/13/24 14:38 FiO2 Intake & Output 11/12/24 11/13/24 11/13/24 18:59 06:59 18:59 Weight 76.657 kg - Constitutional General appearance: Present: cooperative - EENT Eyes: Present: EOMI ENT: Present: hearing grossly normal - Neck Neck: Present: normal ROM - Respiratory Respiratory: bilateral: CTA - Cardiovascular Rhythm: regular Heart sounds: normal: S1, S2 - Integumentary Integumentary: Present: normal turgor - Musculoskeletal Musculoskeletal: Present: gait normal - Psychiatric Psychiatric: Present: A&O x's 3, appropriate affect, intact judgment & insight - Additional findings Additional findings: Breast Exam: 40DD Inspection: Bilateral grade 3 ptosis, bilateral nipple inversion chronic Palpation: Right breast: Multi positional exam postsurgical and radiation changes, incisions clean and dry and well-healed, fullness which may be related to the radiation versus a seroma Right axilla: No adenopathy of concern Left breast: Multi positional exam no dominant masses or nodules of concern, fiborcystic changes Left axilla: No adenopathy of concern Assessment and Plan Assessment: Impression: Right breast invasive ductal carcinoma Core biopsy right axillary lymph node positive for invasive ductal carcinoma HER2 status (-) Decreased hearing bilateral ears Asthma Hypertension Hypothyroid post op axillary infection right resolved Postsurgical and radiation changes right breast Plan: I have discussed with the patient and her an attempt at aspiration of seroma and they wish this to be performed they understand that if no fluid is obtained we will obtain an ultrasound to see if there is a loculated seroma Ultrasound right breast rule out seroma Bilateral mammogram will be due 6 months from finishing radiation; March 2025 with appointment at that time Follow-up after ultrasound of the right breast Following consent the area of concern in the right breast was prepped using alcohol. An 18-gauge needle on a 20 cc syringe was inserted into the area of fullness. There was no fluid able to be aspirated. It is believed that the area of fullness most likely represents postradiation and surgical changes CC: Dr. Lewis/Mary Ellen Rebolledo Additional CC's: Arnav Rebolledo
== END ==
LOC: WWCWWP 14:30
PROVIDERS: ATTEND Surgery
DX: C50.911 Malignant neoplasm of unspecified site of right female breast (principal); J45.909 Unspecified asthma, uncomplicated; I10 Essential (primary) hypertension; H91.93 Unspecified hearing loss, bilateral; E03.9 Hypothyroidism, unspecified; Z92.3 Personal history of irradiation; Z98.890 Other specified postprocedural states

== ENCOUNTER → 2024-11-14 | Outpatient (CLI) | payer MEDICARE ==
--- NOTE | 2024-11-14 08:55 | USB ---
Reason for Exam: Clinical finding. Patient History: Menarche at age 12. Patient has no children. Hysterectomy at age 52. Postmenopausal. Breast cancer, right, age 78. Breast cancer, right, age 79. Breast cancer, right, age 79. 06/24/2024, Lumpectomy on the Right side. 06/24/2024, Malignant US breast localization RT on the right side. 05/22/2024, Malignant US biopsy breast VAD RT on the right side. 04/10/2024, Malignant US biopsy breast VAD RT on the right side. 02/19/2008, Cancelled Left Mammotome on the left side. Maternal cousin had breast cancer. Technique: Method: Targeted. Prior Study Comparison: 04/10/2024 Right MG diagnostic mammo RT wo CAD, [facility]. 05/22/2024 Right MG diagnostic mammo RT wo CAD, [facility]. 06/24/2024 Right MG diagnostic mammo RT wo CAD, [facility]. Findings: The upper outer quadrant of the right breast, the axilla of the right breast and the retroareolar of the right breast were scanned. Targeted ultrasound upper outer quadrant right breast 9:00 to 12:00 including scanning of the subareolar region and axilla. There is a 3.3 cm area of shadowing which corresponds to postsurgical scar. Additional smaller but similar scar at the right axilla. No significant residual seroma fluid is identified. No other solid or cystic lesion or axillary adenopathy. Overall Assessment: Probably benign, BI-RAD 3 Management: Diagnostic Mammogram of both breasts in 4 months. A clinical breast exam by your physician is recommended on an annual basis and results should be correlated with mammographic findings. This exam should not preclude additional follow-up of suspicious palpable abnormalities. Results were given to the patient verbally at the time of exam. [facility], , 11/14/2024 8:52 AM. Electronically signed and approved by: Nina Katz M.D. Radiologist
== END | disposition home or self-care (01) ==
LOC: RADUSWWP 08:18
PROVIDERS: ATTEND Surgery
DX: Z85.3 Personal history of malignant neoplasm of breast (principal); Z80.3 Family history of malignant neoplasm of breast; Z78.0 Asymptomatic menopausal state